=== PATIENT | female | born 1965 | race Caucasian/White ===

== ENCOUNTER 2019-03-23 10:29 | Emergency (ER) | payer BC ==
[2019-03-23 10:44] VITALS: BP 145/106
--- NOTE | 2019-03-23 10:59 | UC ---
Palpitation/Dysrhythmia HP - HPI Summary HPI Summary: Patient presents to urgent care with her . Patient's a 54-year-old female with a history of hypertension, thyroid nodules who states yesterday she noticed some discomfort and heaviness in her left arm. Patient states it was a week but felt heavy when she was trying to normal activity. Patient states today she was setting up a chart from activity she has on Wednesday. Patient states she felt some fluttering in her chest. No shortness of breath note lightheaded but states she felt like her heart Skipping beats. Patient denies sweating. No nausea vomiting. No abdominal pain. Patient with a history of similar but normally is very brief. Patient states she also has a little discomfort in her left jaw earlier today but that has resolved. Patient had a negative cardiac stress test approximately 5 years ago. Patient states she is not on medication for cholesterol. Does not smoke. Patient's parents both had cardiac history. Patient did not take any medicines today to treat her symptoms. Patient was recently diagnosed with thyroid nodules by and recently had an ultrasound. Patient's medications reviewed this visit - History of Current Complaint Chief Complaint: UCChestPain Stated Complaint: HEART FLUTTERING, LEFT ARM CONCERN Time Seen by Provider: 03/23/19 10:51 Hx Obtained From: Patient Hx Last Menstrual Period: ONSET YESTERDAY Onset/Duration: Sudden Onset, Lasting Hours Severity Initially: Mild Severity Currently: Mild Pain Intensity: 2 Pain Scale Used: 0-10 Numeric - Allergy/Home Medications Allergies/Adverse Reactions: Allergies Allergy/AdvReac Type Severity Reaction Status Date / Time No Known Allergies Allergy Verified 03/23/19 10:32 Home Medications: Home Medications Acetaminophen/Diphenhydramine [Acetaminophen/Diphenhydra 25-500 mg] 1 tab PO 08/03 [History] Cyclobenzaprine TAB* [Flexeril 10 MG TAB*] 5 - 10 mg PO TID PRN 03/23/19 [ History Confirmed 03/23/19] Omeprazole CAP (NF) [Prilosec CAP* 20 MG] 20 mg PO DAILY 03/23/19 [History Confirmed 03/23/19] Triamterene/HCTZ 37.5-25 MG* [Dyazide CAP*] 1 cap PO DAILY 03/23/19 [History Confirmed 03/23/19] PMH/Surg Hx/FS Hx/Imm Hx Previously Healthy: Yes Cardiovascular History: Hypertension - Surgical History Surgical History: Yes Surgery Procedure, Year, and Place: BREAST REDUCTION. CHOLYCYSTITIS. PYLONIDAL CYST - Family History Known Family History: Positive: Non-Contributory - Social History Lives: With Family Alcohol Use: None Substance Use Type: None Smoking Status (MU): Never Smoked Tobacco Review of Systems All Other Systems Reviewed And Are Negative: Yes Constitutional: Positive: Negative Skin: Positive: Negative Eyes: Positive: Negative ENT: Positive: Negative Cardiovascular: Positive: Palpitations Gastrointestinal: Positive: Negative Musculoskeletal: Positive: Other: - LUE heavy Physical Exam - Summary Physical Exam Summary: Vital Signs Reviewed: Yes A+Ox3, no distress, mild anxious Eyes: Conjunctiva Clear, MAYITO. EOM intact and full ENT: Hearing grossly normal TM x 2 clear, mmoist, uvula midline, no exudate, no erythema Neck: Positive: Supple Respiratory: Positive: No respiratory distress, No accessory muscle use + CTA throughout no w/r Cardiovascular: RRR nl s1, s2 no m/r CBT <2 sec, no bruits abd soft + BS nt/nd no guarding, no distension Musculoskeletal Exam: PLATT x 4 without difficulty Strength Intact, ROM Intact Unable to reproduce pain in upper ext- pt states feels week - not perceived by me Neurological: Positive: Alert, + sensation throughout 5/ grasp Psychological: Positive: Normal Response To Family Skin: Positive: no rash, no ecchymosis Triage Information Reviewed: Yes Vital Signs: Initial Vital Signs Temp 97.9 F 03/23/19 10:34 Pulse 89 03/23/19 10:34 Resp 18 03/23/19 10:34 BP 145/106 03/23/19 10:34 Pulse Ox 98 03/23/19 10:34 Diagnostics - EKG Cardiac Rate: NL Cardiac Rhythm: Sinus: Normal Ectopy: None ST Segment: Normal EKG Comparison: Other - no old Palpitations Course/Dx - Course Course Of Treatment: Patient presents to urgent care reporting fluttering in her chest. Patient states yesterday she had some left upper extremity discomfort from her axilla to her elbow. Patient states today her left arm feels slightly heavy but not week. Patient also states she had some discomfort in her left jaw earlier today that has since resolved. Patient denies shortness of breath or nausea. Patient with a history of palpitations in the past no diagnosis. Patient states usually her brief but the lasted several hours this morning. No shortness of breath. No history of DVTs. Patient has not taken any over-the- counter medication. Patient also stated taste in her blood pressure was much higher than her baseline as she is on blood pressure medication. On exam the patient noted to have markedly elevated blood pressure. Patient without any bruits in a regular rhythm. EKG not concerning. Recommend patient to emergency permit for further evaluation. Patient comfortable in agreement. We' ll give aspirin prior to discharge. Patient's will drive her she is going to [facility]. Report given to nurse practitioner Angela Christensen at the ED. - Differential Dx/Diagnosis Provider Diagnosis: Palpitations Discharge - Sign-Out/Discharge Documenting (check all that apply): Patient Departure All imaging exams completed and their final reports reviewed: No Studies - Discharge Plan Condition: Stable Disposition: HOME-RECOMMEND TO ED Patient Education Materials: Heart Palpitations (ED) Referrals: Nate Medley PA [Primary Care Provider] - Additional Instructions: The doctor that evaluated you today thinks that you need additional testing that can be completed the emergency department. It is recommended that you go directly to emergency department for further evaluation. This evaluation may include blood work or imaging. This testing will be directed and decided by the provider that evaluate you at the emergency department. If pain becomes worse, you feel lightheaded, you have uncontrolled vomiting, or you have any other concerns while you are being driven to emergency department as recommended to pullover and contact 911. - Billing Disposition and Condition Condition: STABLE Disposition: Home-Recommend to ED
[2019-03-23] MEDS ORDERED: Aspirin 81 mg CHEW TAB* 81 MG TAB.CHEW PO ONE (11:10)
== END 2019-03-23 11:18 | disposition home health service (06) ==
LOC: UCCORT 10:29
DX: R00.2 Palpitations (principal); I10 Essential (primary) hypertension; Z86.39 Personal history of other endocrine, nutritional and metabolic disease
CPT/HCPCS: 93005; 99202; A9270-GY; G0463